=== PATIENT | female | born 1970 | race Caucasian/White ===

== ENCOUNTER 2016-12-25 07:52 | Emergency (ER) | payer MEDICAID ==
[2016-12-25] MEDS ORDERED: NS 1,000 ML IV ONE (08:27)
[2016-12-25] MEDS ORDERED: HYDROmorphONE/DILAUDID 1 MG/ML SYR IVP ONE (08:27)
[2016-12-25] MEDS ORDERED: ONDANSETRON 4 MG/2 ML VIAL IVP ONE (08:27)
--- NOTE | 2016-12-25 08:30 | EDPHY ---
H & P Stated Complaint: l sided abd pain Time Seen by Provider: 12/25/16 08:22 HPI/ROS: CHIEF COMPLAINT: Left flank pain HISTORY OF PRESENT ILLNESS: Patient is a 46-year-old female who comes to the emergency department complaining of left flank pain. It began yesterday. It has been intermittent. She has a history of kidney stones but is not sure if this feels similar. No nausea vomiting or diarrhea. No fevers. No rashes. No history of abdominal surgery. No dysuria. No vaginal bleeding or discharge. She denies risk of . Pain does not radiate REVIEW OF SYSTEMS: Constitutional: denies: chills, fever, recent illness, recent injury EENTM: denies: blurred vision, double vision, nose congestion Respiratory: denies: cough, shortness of breath Cardiac: denies: chest pain, irregular heart rate, lightheadedness, palpitations Gastrointestinal/Abdominal: denies: abdominal pain, diarrhea, nausea, vomiting, blood streaked stools Genitourinary: denies: dysuria, frequency, hematuria, pain Musculoskeletal: denies: joint pain, muscle pain Skin: denies: lesions, rash, jaundice, bruising Neurological: denies: headache, numbness, paresthesia, tingling, dizziness, weakness Hematologic/Lymphatic: denies: blood clots, easy bleeding, easy bruising Immunologic/allergic: denies: HIV/AIDS, transplant EXAM: GENERAL: Well-appearing, well-nourished and in no acute distress. HEAD: Atraumatic, normocephalic. EYES: Pupils equal round and reactive to light, extraocular movements intact, sclera anicteric, conjunctiva are normal. ENT: TMs normal, nares patent, oropharynx clear without exudates. Moist mucous membranes. NECK: Normal range of motion, supple without lymphadenopathy or JVD. LUNGS: Breath sounds clear to auscultation bilaterally and equal. No wheezes rales or rhonchi. HEART: Regular rate and rhythm without murmurs, rubs or gallops. ABDOMEN: no tenderness in all 4 quadrants, no rebound or guarding BACK: No CVA tenderness, no spinal tenderness, step-offs or deformities EXTREMITIES: Normal range of motion, no pitting or edema. No clubbing or cyanosis. NEUROLOGICAL: Cranial nerves II through XII grossly intact. Normal speech, normal gait. 5/5 strength, normal movement in all extremities, normal sensation PSYCH: Normal mood, normal affect. SKIN: Warm, dry, normal turgor, no visible rashes or lesions. Source: Patient Exam Limitations: No limitations - Personal History LMP (Females 10-55): 1-7 Days Ago Current Tetanus/Diphtheria Vaccine: Yes - Medical/Surgical History Hx Asthma: No Hx Chronic Respiratory Disease: No Hx Diabetes: No Hx Cardiac Disease: No Hx Renal Disease: No Hx Cirrhosis: No Hx Alcoholism: No Hx HIV/AIDS: No Hx Splenectomy or Spleen Trauma: No Other PMH: HTN BUT NOT TAKING HER MEDICATION, HCTZ 20 MG PO kidney stones - Family History Significant Family History: No pertinent family hx - Social History Smoking Status: Current every day smoker Alcohol Use: Sober Drug Use: Other Constitutional: Initial Vital Signs Temperature (C) 36.4 C 12/25/16 07:55 Heart Rate 87 12/25/16 07:55 Respiratory Rate 16 12/25/16 07:55 Blood Pressure 126/94 H 12/25/16 07:55 O2 Sat (%) 95 12/25/16 07:55 O2 Delivery Mode Room Air O2 (L/minute) 2 Allergies/Adverse Reactions: morphine Allergy (Verified 12/25/16 07:53) Home Medications: Medication Instructions Recorded Hydrochlorothiazide 12/25/16 Medical Decision Making - Diagnostics Imaging: Discussed imaging studies w/ call or contact centre coach Radiologist ED Course/Re-evaluation: We discussed the CT and lab results which are reassuring. The patient is eager to go home. She declines further workup or testing at this time. I encouraged anti-inflammatories. She thinks that this is likely muscle strain from lifting her mother out of the bathtub. Differential Diagnosis: Partial list of the Differential diagnosis considered include but were not limited to; muscle strain, urinary tract infection, kidney stone and although unlikely based on the history and physical exam, I also considered pneumonia, PE , rib fracture, acute coronary disease. I discussed these differential diagnoses and the plan with the patient as well as the usual and expected course. The patient understands that the diagnosis is provisional and that in medicine we are not always correct and that further workup is often warranted. Usual and customary warnings were given. All of the patient's questions were answered. The patient was instructed to return to the emergency department should the symptoms at all worsen or return, otherwise to followup with the physician as we discussed. - Data Points Laboratory Results: Laboratory Results 12/25/16 08:59 12/25/16 08:59 12/25/16 08:27 POC Hgb 15.6 gm/dL gm/dL (12.3-15.9) POC Hct 46 % % (35.5-47.5) POC Sodium 142 mEq/L mEq/L (134-144) POC Potassium 3.6 mEq/L mEq/L (3.3-5.0) POC Chloride 103 mEq/L mEq/L (96-108) POC BUN 15 mg/dL mg/dL (7-23) POC Creatinine 0.7 mg/dL mg/dL (0.6-1.2) POC Glucose 112 mg/dL H mg/dL (70-100) Medications Given: Discontinued Medications Hydromorphone HCl (Dilaudid) 1 mg IVP EDNOW ONE Stop: 12/25/16 08:28 Last Admin: 12/25/16 09:07 Dose: 1 mg Sodium Chloride (Ns) 1,000 mls @ 0 mls/hr IV ONCE ONE PRN Reason: Wide Open Stop: 12/25/16 08:28 Last Admin: 12/25/16 09:08 Dose: 1,000 mls Ibuprofen (Motrin) 600 mg PO EDNOW ONE Stop: 12/25/16 11:09 Last Admin: 12/25/16 11:08 Dose: 600 mg Ondansetron HCl (Zofran) 4 mg IVP EDNOW ONE Stop: 12/25/16 08:28 Last Admin: 12/25/16 09:08 Dose: 4 mg Point of Care Test Results: 12/25/16 08:27 POC Sodium 142 POC Potassium 3.6 POC Chloride 103 POC BUN 15 POC Creatinine 0.7 POC Glucose 112 H Departure - Departure Disposition: Home, Routine, Self-Care Clinical Impression: Flank pain, acute Condition: Fair Instructions: Flank Pain (ED) Referrals: [facility] [Other] - As per Instructions
[2016-12-25 08:56] LABS: COLOR YELLOW; LEUKOCYTE ESTERASE,URINE NEGATIVE (NEGATIVE); NITRITE,URINE NEGATIVE (NEGATIVE)
[2016-12-25 09:15] LABS: % IMMATURE GRANULYOCYTES 0.6 % (0.0-1.1); ABSOLUTE IMMATURE GRANULOCYTES 0.05 10^3/uL (0.00-0.10); ADD DIFF? NO; ADD MORPH? NO; ADD SCAN? NO; ATYPICAL LYMPHOCYTE FLAG 10 (0-99); FRAGMENT RBC FLAG 0 (0-99); HEMATOCRIT 42.5 % (38.0-47.0); HEMOGLOBIN 15.3 g/dL (12.6-16.3); LEFT SHIFT FLG 0 (0-99); LIPEMIA HEMOLYSIS FLAG 90 (0-99); MEAN CELL HEMOGLOBIN 32.1 pg (27.9-34.1); MEAN CELL VOLUME 89.1 fL (81.5-99.8); MEAN PLATELET VOLUME 10.4 fL (8.7-11.7); PLATELET CLUMPS FLAG 20 (0-99); PLATELET COUNT 238 10^3/uL (150-400); RED BLOOD CELL COUNT 4.77 10^6/uL (4.18-5.33); RED CELL DISTRIBUTION WIDTH 11.9 % (11.5-15.2)
[2016-12-25 09:42] LABS: ALANINE AMINOTRANSFERASE 42 IU/L (9-52); ALBUMIN 4.4 g/dL (3.5-5.0); ALKALINE PHOSPHATASE 45 IU/L (38-126); ANION GAP 9 mEq/L (8-16); ASPARTATE AMINOTRANSFERASE 32 IU/L (14-46); BILIRUBIN,TOTAL 1.5 mg/dL (0.1-1.4); BILIRUBIN-CONJUGATED 0.4 mg/dL (0.0-0.5); BILIRUBIN-UNCONJUGATED 1.1 mg/dL (0.0-1.1); CALCIUM 9.1 mg/dL (8.5-10.4); CARBON DIOXIDE 23 mEq/l (22-31); CHLORIDE 107 mEq/L (97-110); CREATININE 0.6 mg/dL (0.6-1.0); GLOMERULAR FILTRATION RATE > 60; GLUCOSE 92 mg/dL (70-100); POTASSIUM 3.7 mEq/L (3.5-5.2); SODIUM 139 mEq/L (134-144); TOTAL PROTEIN 7.4 g/dL (6.3-8.2)
[2016-12-25] MEDS ORDERED: IBUPROFEN 600 MG TAB PO ONE ×2 (11:00→11:08)
[2016-12-25 11:08] VITALS: BP 132/85; PULSE 69; RESP 16; TEMP 98.6; O2SAT 95
== END 2016-12-25 11:25 | disposition home or self-care (01) ==
DX: R10.9 Unspecified abdominal pain (principal); I10 Essential (primary) hypertension; F17.200 Nicotine dependence, unspecified, uncomplicated
CPT/HCPCS: 82947-QW; 96374; J1170; J2405

== ENCOUNTER → 2017-09-04 | Outpatient (CLI) | payer MEDICAID | LOC: FIMAGING 09:00 | PROVIDERS: ATTEND Physician Assistant | DX: Z09 Encounter for follow-up examination after completed treatment for conditions other than malignant neoplasm (principal); R76.11 Nonspecific reaction to tuberculin skin test without active tuberculosis; Z87.898 Personal history of other specified conditions ==

== ENCOUNTER 2018-07-20 20:38 | Emergency (ER) | payer MEDICAID ==
[2018-07-20] MEDS ORDERED: IPRATROPIUM/ALBUTEROL 3 ML DEYVIAL IH ONE (21:08)
--- NOTE | 2018-07-20 21:11 | EDPHY ---
H & P Stated Complaint: cough Time Seen by Provider: 07/20/18 21:02 HPI/ROS: CHIEF COMPLAINT: Cough x2 weeks HISTORY OF PRESENT ILLNESS: 48-year-old female, homeless, daily smoker, complaining of 2 weeks of productive cough. No dyspnea. No chest pain. No back pain. No abdominal pain. No syncope no near syncope. No fever no chills. No influenza vaccination this season. PRIMARY CARE PROVIDER:[facility] REVIEW OF SYSTEMS: 10 systems reviewed and negative with the exception of the elements mentioned in the history of present illness PAST MEDICAL & SURGICAL HISTORY: No pertinent medical or surgical history SOCIAL HISTORY:Daily tobacco use. Homeless. PHYSICAL EXAM (Prior to examination, patient consented to physical exam, hands were washed and my usual and customary physical exam procedures followed) 1) GENERAL: Well-developed, well-nourished, alert and oriented. Appears to be in no acute distress. Answering questions appropriately. Making jokes. 2) HEAD: Normocephalic, atraumatic 3) HEENT: Pupils equal, round, reactive to light bilaterally. Sclera anicteric. Nasopharynx, oropharynx, clear, no lesions. Moist Mucous membranes. No tonsillar enlargement or exudate. No trismus no drooling Ears bilaterally with normal tympanic membranes. 4) NECK: Full range of motion, no meningeal signs. 5) LUNGS: Mild end-expiratory wheeze bilaterally. No wheezes, no rhonchi, no retractions. 6) HEART: Regular rate and rhythm, no murmur, no heave, no gallop. 7) ABDOMEN: No guarding, no rebound, no focal tenderness, negative McBurney's, negative Medrano's, negative Rovsing's, negative peritoneal sign, negative Homans no palpable cord 8) MUSCULOSKELETAL: Moving all extremities, no focal areas of tenderness, no obvious trauma. No peripheral edema or discoloration. 9) BACK: No CVA tenderness, no midline vertebral tenderness, no fluctuance, no step-off, no obvious trauma, no visual or palpable abnormality. 10) SKIN: No rash, no petechiae. 11) Psychiatric: Patient is oriented X 3, there is no agitation. DIFFERENTIAL DIAGNOSIS: In no particular include but limited to bronchitis, pneumonia, pneumothorax - Personal History LMP (Females 10-55): 15-21 Days Ago - Medical/Surgical History Hx Asthma: No Hx Chronic Respiratory Disease: No Hx Diabetes: No Hx Cardiac Disease: No Hx Renal Disease: No Hx Cirrhosis: No Hx Alcoholism: No Hx HIV/AIDS: No Hx Splenectomy or Spleen Trauma: No Other PMH: HTN BUT NOT TAKING HER MEDICATION, HCTZ 20 MG PO kidney stones - Social History Smoking Status: Current every day smoker Constitutional: Initial Vital Signs Temperature (C) 36.5 C 07/20/18 20:47 Heart Rate 94 07/20/18 20:47 Respiratory Rate 20 07/20/18 20:47 Blood Pressure 108/58 L 07/20/18 20:47 O2 Sat (%) 93 07/20/18 20:47 O2 Delivery Mode Room Air Allergies/Adverse Reactions: morphine Allergy (Verified 07/20/18 20:47) Home Medications: Medication Instructions Recorded Hydrochlorothiazide 12/25/16 Albuterol [Proventil Inhaler HFA 1 - 2 puffs IH Q4PRN PRN #1 mdi 07/20/18 (*)] Azithromycin [Zithromax] 500 mg PO DAILY #1 tablet 07/20/18 Medical Decision Making - Diagnostics Imaging Results: Imaging Impressions Chest X-Ray 07/20/18 21:01 Impression: No acute abnormality, or substantial change from 09/04/2017. Images reviewed myself ED Course/Re-evaluation: Re-evaluation with serial exams. Chest x-ray shows no focal infiltrate. Symptomatic for 2 weeks. I think a trial of antibiotics is appropriate. She is not hypoxemic. She felt improvement after DuoNeb treatment. Discharged with albuterol meter dose inhaler. Recommend smoking cessation. Discharged with azithromycin. Usual and customary respiratory precautions instructions provided. I saw this patient independently based on established practice protocols. Care of patient under supervision of secondary supervising physician Dr Rueda. - Data Points Medications Given: Discontinued Medications Albuterol/Ipratropium (Duoneb) 3 ml IH EDNOW ONE Stop: 07/20/18 21:09 Last Admin: 07/20/18 21:19 Dose: 3 ml Departure - Departure Disposition: Home, Routine, Self-Care Clinical Impression: Cough Condition: Good Instructions: Upper Respiratory Infection (ED) Additional Instructions: Please stop smoking cigarettes. Referrals: [facility],. [Clinic] - 2-3 days, call for appt. Prescriptions: Albuterol [Proventil Inhaler HFA (*)] 1 - 2 puffs IH Q4PRN PRN #1 mdi PRN Reason: Cough, Moderate Azithromycin [Zithromax] 500 mg PO DAILY #1 tablet
[2018-07-20 21:53] VITALS: BP 124/94
== END 2018-07-20 21:53 | disposition home or self-care (01) ==
DX: R05 Cough (principal); Z59.0 Homelessness; Z72.0 Tobacco use; I10 Essential (primary) hypertension; T46.5X6A Underdosing of other antihypertensive drugs, initial encounter